=== PATIENT | male | born 1965 | race Caucasian/White ===

== ENCOUNTER → 2019-04-04 13:18 | Outpatient (CLI) | payer OTHER ==
--- NOTE | 2019-04-07 15:03 | EC ---
PATIENT:PHOEBE THRASHER DATE OF SERVICE: 04/04/19 SEX: M MEDICAL RECORD: [id number] DATE OF : 65 [facility] AGE OF PATIENT: 53 ADMISSION DATE: 04/04/19 REFERRING PHYSICIAN: INTERPRETING PHYSICIAN: ALBINA MAN MD ECHOCARDIOGRAM REPORT ECHO CHARGES 4 ECHO COMPLETE Date: 04/04/19 CLINICAL DIAGNOSIS: OAKLEY/MURMUR H/O DVT/PE ECHOCARDIOGRAPHIC MEASUREMENTS (adult normal given) AC root (d.<3.7cm) 3.4 cm LV Septum d (<1.2 cm> 1.2 cm Valve Excursion 1.9 cm LV Septum (systole) 1.7 cm Left Atria (s.<4.0cm> 4.1 cm LVPW d(<1.2cm) 1.2 cm RV (d.<2.3cm) 2.1 cm LVPW (sytole) 1.6 cm LV diastole(<5.6CM) 5.8 cm MV E-F(>70mm/sec) cm LV systole 4.0 cm LVOT Diameter 2.0 cm MV exc.(>10mm) cm Est.ejection fraction (50-75%) % DOPPLER: LVIT cm/sec A 83.0 cm/sec E 61.0 cm/sec LA cm/sec RVSP 15.0 mmHg LVOT 113 cm/sec AOP1/2T m/s Asc. Ao 139 cm/sec RVOT 85.0 cm/sec RA cm/sec PA 101 cm/sec AV Gradient Peak 7.7 mmHg AV Mean 3.9 mmHg AV Area 2.4 cm MV Gradient Peak 3.9 mmHg MV Mean 1.4 mmHg MV Area cm COMMENTS: OP - HC Licensed Architect: 1 LEONIDES NGUYEN Botany Teacher: 3 Dr. Gutierrez TAPE# PACS Pericardial Effusion N DATE OF SERVICE: Adequate 2D, color flow, spectral Doppler, and M-Mode. No LVH. LV internal dimensions are normal. Wall motion is normal. EF is greater than or equal to 55%. Aortic valve is tricuspid. No evidence of stenosis on Doppler interrogation. Left atrium is upper limits of normal, mildly dilated at 4.1 cm. Mitral valve shows no prolapse. Trace MR. Right-sided chambers are grossly normal. Trace TR. TRANSINT:[id number] Voice Confirmation ID: [id number] DOCUMENT ID: [id number] ECHOCARDIOGRAM REPORT [id number] PHOEBE THRASHER,ALBINA Lakhani MD at 1503 CC: [id number] DICTATION DATE: 04/07/19 1247 CNC OPERATOR: 04/07/19 1302 DEP CLI 04/04/19 [place] [id number] [place] [id number]
== END | disposition home or self-care (01) ==
LOC: D.HCCARDIO 13:18
PROVIDERS: ATTEND Internal Medicine Interventional Cardiology
DX: R01.1 Cardiac murmur, unspecified (principal)

== ENCOUNTER → 2020-06-08 08:07 | Outpatient (CLI) | payer OTHER | END | disposition home or self-care (01) | LOC: D.HCCARDIO 08:07 | PROVIDERS: ATTEND Internal Medicine Cardiovascular Disease | DX: I20.9 Angina pectoris, unspecified (principal) ==

== ENCOUNTER → 2020-06-14 09:23 | Outpatient (CLI) | payer OTHER ==
--- NOTE | 2020-06-16 08:18 | EC ---
PATIENT:PHOEBE THRASHER JR DATE OF SERVICE: 06/14/20 SEX: M MEDICAL RECORD: [id number] DATE OF : 65 LOCATION:[facility] AGE OF PATIENT: 55 ADMISSION DATE: 06/14/20 REFERRING PHYSICIAN: INTERPRETING PHYSICIAN: ALBINA MAN MD ECHOCARDIOGRAM REPORT ECHO CHARGES 4 ECHO COMPLETE Date: 06/14/20 CLINICAL DIAGNOSIS: HEART MURMUR/ANGINA/DYSPNEA ECHOCARDIOGRAPHIC MEASUREMENTS (adult normal given) AC root (d.<3.7cm) 3.5 cm LV Septum d (<1.2 cm> 1.6 cm Valve Excursion 1.3 cm LV Septum (systole) 1.7 cm Left Atria (s.<4.0cm> 3.6 cm LVPW d(<1.2cm) 1.7 cm RV (d.<2.3cm) 3.4 cm LVPW (sytole) 1.8 cm LV diastole(<5.6CM) 4.5 cm MV E-F(>70mm/sec) cm LV systole 3.5 cm LVOT Diameter 2.1 cm MV exc.(>10mm) cm Est.ejection fraction (50-75%) % DOPPLER: LVIT cm/sec A 72.0 cm/sec E 61.0 cm/sec LA cm/sec RVSP 17 mmHg LVOT 109 cm/sec AOP1/2T m/s Asc. Ao 137 cm/sec RVOT 99 cm/sec RA cm/sec PA 141 cm/sec AV Gradient Peak 7.49 mmHg AV Mean 3.57 mmHg AV Area 3.3 cm MV Gradient Peak 3.10 mmHg MV Mean 1.43 mmHg MV Area cm COMMENTS: Testing Tech: 2 TRACEY DAMICO Car Runner: 3 Dr. Gutierrez TAPE# PACS Pericardial Effusion N DATE OF SERVICE: Adequate 2D echo, color flow, spectral Doppler, and M-Mode. LVH is present. LV internal dimension is normal. Wall motion is normal. EF is greater than or equal to 55%. Aortic valve is tricuspid. No evidence of stenosis by Doppler interrogation. Left atrium is normal at 3.6. Mitral valve shows no prolapse. Trace MR. Right-sided chambers are grossly normal. Trace TR. TRANSINT:[id number] Voice Confirmation ID: [id number] DOCUMENT ID: [id number] ECHOCARDIOGRAM REPORT [id number] PHOEBE THRASHER JR, GREGORY A MD at 0818 CC: [id number] DICTATION DATE: 06/15/20 125 STAND UP COMEDIAN: 06/15/202030 DEP CLI 06/14/20 [place] [id number] [place] [id number]
== END | disposition home or self-care (01) ==
LOC: D.HCCECHO 09:23
PROVIDERS: ATTEND Internal Medicine Interventional Cardiology
DX: R01.1 Cardiac murmur, unspecified (principal)